=== PATIENT | female | born 1950 | race Caucasian/White ===

== ENCOUNTER 2025-07-23 06:22 | Emergency (ER) | payer OTHER, MEDICARE, SELFPAY ==
--- NOTE | 2025-07-23 | ECG_ITS ---
Test Reason : dizziness Blood Pressure : */* mmHG Vent. Rate : 58 BPM Atrial Rate : 58 BPM P-R Int : 184 ms QRS Dur : 86 ms QT Int : 470 ms P-R-T Axes : 42 -2 31 degrees QTcB Int : 461 ms Sinus bradycardia Minimal voltage criteria for LVH, may be normal variant ( R in aVL ) Borderline ECG No previous ECGs available Referred By: Generic ED Physician Electronically Signed By: CARMEN BRUCE
--- NOTE | ~2025-07-23 | CT_ITS ---
EXAMINATION: CT ABDOMEN AND PELVIS WITH CONTRAST CLINICAL INFORMATION: Left lower quadrant and right flank pain. History of renal stones. COMPARISON: None available. TECHNIQUE: Multidetector volumetric images were obtained from the superior aspect of the liver through the pubic symphysis following administration 85 mL of Omnipaque 350 intravenous contrast. Sagittal and coronal reformatted images were obtained on the technologist's workstation. Oral contrast: No This CT examination was performed using dose optimization techniques as appropriate, variously including the following: *Automated exposure control *Adjustment of mA and/or kV according to patient size (this includes techniques or standardized protocols for targeted exams where dose is matched to indication/reason for exam; i.e. extremities or head) *Use of iterative reconstruction technique FINDINGS: LUNG BASES: Lung bases are clear bilaterally. There is minimal dependent atelectasis. There is mild cardiac enlargement. There is dense calcification of the mitral annulus. There is mild calcification of the aortic annulus. There are moderate coronary calcifications. There is no pericardial effusion. LIVER, GALLBLADDER, AND BILIARY TREE: The liver is normal in size, shape, and attenuation. No focal hepatic lesion or biliary ductal dilatation is present. The gallbladder is unremarkable with no evidence of radiopaque gallstones, gallbladder wall thickening, or obvious pericholecystic inflammatory changes. There is a phrygian cap. PANCREAS: Mild to moderate atrophy with scattered parenchymal calcifications. Otherwise normal. SPLEEN: Unremarkable. ADRENAL GLANDS: Unremarkable. KIDNEYS AND URETERS: Right kidney: Moderate hydronephrosis and perirenal stranding. Moderate hydroureter to the level of the ureterovesical junction, where there is a 5 mm obstructing calculus. No additional right renal calculi seen. No right renal masses. Left kidney demonstrates several small cysts, the largest in the lower pole measuring 1.6 cm. No hydronephrosis, calculus, or mass. The left ureter is normal. BLADDER: Decompressed but otherwise normal. GASTROINTESTINAL TRACT: There is mild to moderate sigmoid diverticulosis. There is no evidence of wall thickening or inflammation. Remainder of the colon is normal in course and caliber. Normal appendix. Small bowel is normal. Stomach, and duodenal sweep appear normal. No rectal abnormality. ABDOMINAL WALL: No significant hernia is appreciated. LYMPH NODES: No abnormal lymphadenopathy is present. VASCULAR: Moderate to heavy calcific atheromatous disease of the aorta and iliac arteries. No aneurysm. PELVIC VISCERA: There has been a hysterectomy. The ovaries are normal. OSSEOUS STRUCTURES: No lytic or blastic bone lesion evident. Moderate spinal degenerative changes. Mild to moderate bilateral hip joint degenerative changes. CT/CT abdomen pelvis w IV con IMPRESSION: 1. Moderate RIGHT hydronephrosis and hydroureter secondary to an obstructing 5 mm calculus at the UVJ. 2. No additional urological calculi identified. 3. Ancillary findings as discussed in the body of the report. Electronically signed by: Nilesh Hillman MD 07/23/2025 11:05 AM EDT RP
[2025-07-23 06:24] VITALS: BP 166/72; PULSE 62; RESP 15; TEMP 36.7; O2SAT 100; BMI 41.3
[2025-07-23 06:46] LABS: MANUAL DIFF FLAG NO
[2025-07-23 07:04] LABS: Alanine Aminotransferase 13 U/L (0-31); Albumin Level 4.0 g/dL (3.5-5.0); Alkaline Phosphatase 132 U/L (39-117); Anion Gap 14 (12-20); Aspartate Amino Transferase 19 U/L (5-31); Blood Urea Nitrogen 22 mg/dL (9-16); Calcium 9.4 mg/dL (8.4-10.2); Carbon Dioxide 26 mmol/L (22-29); Chloride 106 mmol/L (96-108); Creatinine Clr Calc Pharmacy 55.4; Estimated Glomerular Filt Rate 49; Lipase 17 U/L (8-78); Potassium 4.0 mmol/L (3.3-5.1); Sodium 142 mmol/L (135-145); Total Protein 6.4 g/dL (6.5-8.0)
[2025-07-23 07:06] LABS: Hematocrit 44.2 % (37.0-47.0); Hemoglobin 14.6 g/dl (12.0-16.0); Imm Gran Abs Auto 0.03 X10*3/uL (0.00-0.03); Imm Gran Pct Auto 0.3 % (0.0-0.4); Lymphocytes Absolute Auto 1.2 X10*3/uL (1.2-4.9); Mean Corpuscular HGB Conc 33.0 g/dl (31.0-35.0); Mean Corpuscular Hemoglobin 30.7 pg (27.0-33.0); Mean Corpuscular Volume 92.9 fL (80.0-98.0); NRBC Abs Auto 0.000 X10*3/uL (0.0-0.012); NRBC Pct Auto 0.0 /100WBC (0.0-0.2); Platelet Count 218 X10*3/uL (160-400); Red Blood Count 4.76 X10*6/uL (4.20-5.50); White Blood Count 9.1 X10*3/uL (4.8-10.8)
--- OUTSIDE RECORDS SUMMARY | 2025-07-23 08:39 | XMS_ITS | Clinical Summary ---
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 Name Role Phone Unavailable Primary Care Provider Unavailabl e Surgical History Surgery Date Site/Laterality Comments HYSTERECTOMY PROCEDURE: HISTORICAL HYSTERECTOMY FOOT SURGERY Right PROCEDURE: HISTORICAL FOOT SURGERY; COMMENT: metatarsal fracture KNEE SURGERY PROCEDURE: HISTORICAL KNEE SURGERY Medical History Medical History Date Comments Adnexal cyst 12/04/2014 DX:Adnexal cyst Anxiety 02/28/2013 DX:Anxiety Colon polyp 12/26/2016 DX:Colon polyp Diverticulosis 12/26/2016 DX:Diverticulosi s Hyperlipidemia 03/21/2018 DX:Hyperlipidemi a Hypertension 05/14/2018 DX:Hypertension Internal hemorrhoids 12/26/2016 DX:Internal hemorrhoids Osteoporosis 09/26/2017 DX:Osteoporosis Vitamin D deficiency 09/08/2015 DX:Vitamin D deficiency Social History Tobacco Use Types Packs/Day Years Used Date Smoking Tobacco: Former Cigarettes Q uit: 08/02/2019 Smokeless Tobacco: Never Alcohol Use Standard Drinks/Week Comments Yes 0 (1 standard drink = 0.6 oz pur e alcohol) Comments Unknown Sex and Gender Information Value Date Recorded Sex Assigned at Not on file Legal Sex Female 1:27 PM EST Gender Identity Not on file Sexual Orientation Not on file Obstetrics History Plan of Treatment Health Maintenance Due Date Last Done Comments Breast Cancer Screening 1950 DTaP,Tdap,and Td Vaccines (1 - Tdap) 1971 Zoster Vaccines (1 of 2) 2002 Pneumococcal Vaccine: 50+ Years (3 of 3 - PCV20 or PCV21) 09/26/2022 09/26/2017, 01/01/2016 COVID-19 Vaccine ( - 2023-2 5 season) 2024 Cholesterol Screening (Lipid Panel) 09/20/2024 Falls Risk Assessment 09/20/2024 Hepatitis C Screening 09/20/2024 Hypertension/CHF/CAD Annual BMP Blood Test 09/20/2024 Osteoporosis Screening (Bone Density Screening) 09/20/2024 Social Influencers of Health Screening 09/20/2024 Depression Screening 11/27/2024 Influenza Vaccine (#1) 2025 Colorectal Cancer Screening: Colonoscopy 12/22/2026 RSV Immunization Adult Patients (1 - 1-dose 75+ series) 2027 HIB Vaccines Aged Out No longer eligi ble based on patient's age to complete this topic HPV Vaccines Aged Out No longer eligi ble based on patient's age to complete this topic Hepatitis A Vaccines Aged Out No long er eligible based on patient's age to complete this topic Hepatitis B Vaccines Aged Out No long er eligible based on patient's age to complete this topic IPV Vaccines Aged Out No longer eligi ble based on patient's age to complete this topic MMR Vaccines Aged Out No longer eligi ble based on patient's age to complete this topic Meningococcal ACWY Vaccine Aged Out N o longer eligible based on patient's age to complete this topic Meningococcal B Vaccine Aged Out No l onger eligible based on patient's age to complete this topic RSV Immunization Patients Under 20 months Aged Out No longer eligible b ased on patient's age to complete this topic Varicella Vaccines Aged Out No longer eligible based on patient's age to complete this topic
--- NOTE | 2025-07-23 08:53 | PC.NURSE ---
pt awake and alert, skin warm and dry, respirations even and unlabored without distress noted. The pt reports 10/10 right lower quadrant pain that radiates around to her back with associated nausea and urinary symptoms. The pt was up to the restroom independently shortly after arrival to bedside and was given a urine cup for a sample but was unable to produce a sample. Upon returning to the bed, she reported feeling faint and dizzy. EKG order entered
[2025-07-23 08:59] VITALS: BP 178/97; PULSE 43; RESP 10; TEMP 36.6; O2SAT 95
--- NOTE | 2025-07-23 09:31 | ED_ITS ---
HPI - Female Genitourinary General Chief complaint: Urogenital-Female Stated complaint: kidney stones Time Seen by Provider: 07/23/25 09:31 Source: patient Mode of arrival: ambulatory Limitations: no limitations History of Present Illness ED Provider: HPI Narrative: 75-year-old woman with a history of renal stones presenting with right flank pain lower quadrant abdominal pain reports dysuria difficult urination, no fevers or chills did have nausea. No vaginal bleeding or discharge. Related Data Previous Rx's ?Medication ?Instructions ?Recorded acetaminophen 500 mg capsule 1,000 mg (2 x 500 mg) PO Q6H PRN 07/23/25 pain 5 days #20 caps ondansetron 4 mg disintegrating 4 mg PO Q8H PRN nausea and 07/23/25 tablet vomiting #4 tabs oxycodone 5 mg tablet 5 mg PO Q6H PRN pain #10 tab s 07/23/25 tamsulosin 0.4 mg capsule (Flomax) 0.4 mg PO BEDTIME 5 days #5 caps 07/23/25 Allergies Allergy/AdvReac Type Severity Reaction Status Date / Time Penicillins Allergy Rash Verified 07/23/25 06:28 sulfamethoxazole (From Allergy Rash Verified 07/23/25 06:28 Bactrim) trimethoprim (From Bactrim) Allergy Rash Verified 07/23/25 06:28 Review of Systems 2 Constitutional: Constitutional: Reports as per [facility] Social History Social History Smoked in Last 30 Days: No Use of substances other than those prescribed or required for medical reasons: No Advance Directives: No Advance Directives Information Provided: Yes Do you have a plan to hurt others: No Plan Patient : No Physical Exam 2 Vital Signs: Vital Signs: Last Vital Signs Temp 97.9 F 07/23/25 08:59 Pulse 43 L 07/23/25 08:59 Resp 14 07/23/25 10:08 BP 178/97 H 07/23/25 08:59 Pulse Ox 95 07/23/25 08:59 O2 Del Method Room Air 07/23/25 08:59 BMI result Body Mass Index 41.3 Const: Other: * Gen: ?Overall well-appearing patient * CV: RRR, no obvious murmurs appreciated * Resp: ?No wheezing rales rhonchi no stridor moving air well * Abd: ?Bowel sounds are present, no tenderness no rebound no rigidity, no CVA tenderness * MSK: FROM, strength 5/5 all extremities * Skin: Warm, dry, intact, no rashes * Neuro: ?Alert and oriented x3, moving upper and lower extremities symmetrically, no obvious facial asymmetry noted Medications Administered Discontinued Medications Generic Name Dose Route Start Last Admin Trade Name Kiera PRN Reason Stop Dose Admin Iohexol 100 ml 07/23/25 10:22 07/23/25 10:43 Iohexol 350 Mg/Ml 100 Ml Infus..Btl IV 07/23/25 10:23 85 ml ONCE ONE Administration Ketorolac Tromethamine 15 mg 07/23/25 09:57 07/23/25 10:08 Ketorolac Tromethamine 15 Mg/Ml Vial IVPUSH 07/23/25 09:58 15 mg ONCE ONE Administration Morphine Sulfate 4 mg 07/23/25 09:57 07/23/25 10:08 Morphine Sulfate 4 Mg/Ml Cartridge IVPUSH 07/23/25 09:58 4 mg ONCE ONE Administration Protocol Ondansetron HCl 4 mg 07/23/25 09:57 07/23/25 10:08 Ondansetron Hcl 4 Mg/2 Ml Vial IVPUSH 07/23/25 09:58 4 mg ONCE ONE Administration Medical Decision Making Medical Decision Making MDM Narrative: Consideration for workup as below, we will order IV medications for pain antiemetics as well obtain imaging, disposition to be determined 1158: Differential Diagnosis Differential Diagnoses: The differential diagnosis associated with the presentation includes (Renal colic, diverticulitis, appendicitis, SBO, bowel perforation, AAA, pyelonephritis) Admission/Observation Consideration of admission/observation: Escalation of care including admission/observation considered 2022 Emergency Medicine Coding Guide from [email or web address] on 07/23/2025 All calculations should be rechecked by clinician prior to use RESULT SUMMARY: 5 Estimated Level of Service Problems: High (5) Risk: High (5) Data: Extensive (5) NARRATIVE MDM: This patient's problem complexity is High as patient: may have an acute or chronic illness/injury posing a threat to life or body function. This patient's risk is High due to: overall presentation requiring evaluation for a potentially High-risk process. This patient's data complexity is Extensive due to: -multiple tests ordered -independent interpretation of imaging or EKG INPUTS: Number and Complexity ?> 2 = 5: illness/injury w/life or body threat (b) Risk level ?> 4 = High Tests ordered ?> 2 = 2 Tests results reviewed (excluding labs) ?> 1 = 1 Prior external notes reviewed ?> 0 = 0 Assessment requiring and independent historian ?> 0 = No Independent interpretation of tests ?> 1 = Yes Discussed management/test interpretation w/external professional ?> 0 = No Lab Data MDM Lab Attestation statement: I reviewed the patient's lab results. 07/23/25 06:40 07/23/25 06:40 Labs: Lab Results 07/23/25 07/23/25 Range/Units 06:40 09:49 WBC 9.1 (4.8-10.8) X10*3/uL RBC 4.76 (4.20-5.50) X10*6/uL Hgb 14.6 (12.0-16.0) g/dl Hct 44.2 (37.0-47.0) % MCV 92.9 (80.0-98.0) fL MCH 30.7 (27.0-33.0) pg MCHC 33.0 (31.0-35.0) g/dl RDW 13.2 (11.0-16.0) % Plt Count 218 (160-400) X10*3/uL MPV 10.1 (9.4-12.3) fL Immature Gran % (Auto) 0.3 (0.0-0.4) % Neut % (Auto) 80.4 H (45-73) % Lymph % (Auto) 12.6 L (20-40) % [place] % (Auto) 5.0 (2-11) % Eos % (Auto) 1.3 (0-4) % Baso % (Auto) 0.4 (0-2) % Lymph # (Auto) 1.2 (1.2-4.9) X10*3/uL [place] # (Auto) 0.5 (0.1-1.2) X10*3/uL Eos # (Auto) 0.1 (0.0-0.4) X10*3/uL Baso # (Auto) 0.0 (0.0-0.2) X10*3/uL Abs Immat Gran (auto) 0.03 (0.00-0.03) X10*3/uL Absolute Neuts (auto) 7.3 (2.0-8.3) x10*3/uL Absolute Nucleated RBC 0.000 (0.0-0.012) X10*3/uL Nucleated RBC % (auto) 0.0 (0.0-0.2) /100WBC Sodium 142 (135-145) mmol/L Potassium 4.0 (3.3-5.1) mmol/L Chloride 106 (96-108) mmol/L Carbon Dioxide 26 (22-29) mmol/L Anion Gap 14 (12-20) BUN 22 H (9-16) mg/dL Creatinine 1.09 (0.5-1.4) mg/dL Estim Creat Clear Calc 55.4 Estimated GFR 49 Random Glucose 182 H (60-115) mg/dL Calcium 9.4 (8.4-10.2) mg/dL Total Bilirubin 0.8 (0.0-1.0) mg/dL AST 19 (5-31) U/L ALT 13 (0-31) U/L Alkaline Phosphatase 132 H (39-117) U/L Total Protein 6.4 L (6.5-8.0) g/dL Albumin 4.0 (3.5-5.0) g/dL Lipase 17 (8-78) U/L Urine Color Yellow Urine Appearance Clear Urine pH 7.5 (5.0-9.0) Ur Specific [place] 1.015 (1.005-1.025) Urine Protein Trace (Neg-Trace) mg/dL Urine Glucose (UA) 100 H (Negative) mg/dL Urine Ketones Trace (Negative) mg/dL Urine Blood Moderate (2+) H (Negative) Urine Nitrite Negative (Negative) Ur Leukocyte Esterase Small (1+) H (Negative) Urine RBC >20 H (0-2) /HPF Urine WBC 11-20 H (0-5) /HPF Ur Squamous Epith Cells 6-10 (0-2) /HPF Urine Bacteria Trace (None Seen) Hyaline Casts 0-2 (0-2) /LPF Radiology Impression Discussion of test interpretation with radiology: I have reviewed the radiologist's reading. ( CT/CT abdomen pelvis w IV con IMPRESSION: 1. Moderate RIGHT hydronephrosis and hydroureter secondary to an obstructing 5 mm calculus at the UVJ. 2. No additional urological calculi identified. 3. Ancillary findings as discussed in the body of the report.) Prescription Management I considered prescription management with: Pain Medication Critical Care Time Critical Care Time Critical Care Time: Yes Total Critical Care Time: 35 Attestation: Time is exclusive of separately billable procedures. Time includes: direct patient care, patient reassessment, coordination of patient care, interpretation of data (laboratory data, pulse oximetry, arterial blood gases and chest xrays), review of patient's medical records, medical consultation and documentation of patient care. Procedures excluded from critical care time: central intravenous line placement and electrocardiography. Discharge Plan Discharge Clinical Impression: Renal colic on right side Patient Disposition: Home, Self-Care Instructions: Renal Colic (ED) Additional Instructions: You were in the process of passing a 5 mm kidney stone on the right side, it is almost in the bladder, I suspect you going to passive with the next few days, ibuprofen 400 mg every 6 hours around the clock for the next 2 days, Tylenol 975 mg only if pain is not better, and addition of oxycodone if ibuprofen and Tylenol helping, Flomax before bedtime, Zofran as needed for nausea and vomiting, follow up with the PCP or Urology, worsening issues or concerns inability to urinate spiking fevers come back to the ER Prescriptions: New acetaminophen 500 mg capsule 1,000 mg PO Q6H PRN (Reason: pain) 5 Days Qty: 20 0RF oxycodone 5 mg tablet 5 mg PO Q6H PRN (Reason: pain) Qty: 10 0RF Rx Instructions: Partial Fill upon patient request. tamsulosin [Flomax] 0.4 mg capsule 0.4 mg PO BEDTIME 5 Days Qty: 5 0RF ondansetron 4 mg tablet,disintegrating 4 mg PO Q8H PRN (Reason: nausea and vomiting) Qty: 4 0RF Referrals: [facility] [Provider Group, Urology] - 1 week Clinical Impression: Renal colic on right side Print Language: Cuban
[2025-07-23 09:56] LABS: Appearance Urine Clear; Glucose Urine UA 100 mg/dL (Negative); PH 7.5 (5.0-9.0); Specific Gravity - Urine 1.015 (1.005-1.025); UMIC TRIGGER UACC YES
[2025-07-23 09:58] LABS: UACC Culture Trigger YES
[2025-07-23 10:08] VITALS: RESP 14
[2025-07-23] MEDS: iohexoL 350 MG/ML 100 ML INFUS..BTL IV (10:43)
[2025-07-23 12:35] VITALS: BP 146/85; PULSE 72; RESP 14; TEMP 36.8; O2SAT 96
== END 2025-07-23 12:35 | disposition home or self-care (01) ==
PROVIDERS: Emergency Provider Emergency Medicine
DX: N20.0 Calculus of kidney (principal); R42 Dizziness and giddiness; R00.1 Bradycardia, unspecified; R10.32 Left lower quadrant pain; Z87.442 Personal history of urinary calculi
CPT/HCPCS: 36415; 74177; 80053; 81001; 83690; 85025; 87086; 93005; 96374; 96375; 99285; J1885; J2270; J2405; Q9967

== ENCOUNTER → 2025-07-23 07:59 | Outpatient (BNV) | payer OTHER, MEDICARE, SELFPAY | PROVIDERS: Emergency Provider Emergency Medicine; Visit Provider Internal Medicine | DX: R00.1 Bradycardia, unspecified (principal) | CPT/HCPCS: 93010 ==

== ENCOUNTER → 2025-07-23 09:57 | Outpatient (BNV) | payer OTHER, MEDICARE, SELFPAY | PROVIDERS: Emergency Provider Emergency Medicine; Visit Provider Radiology Diagnostic Radiology | DX: N13.2 Hydronephrosis with renal and ureteral calculous obstruction (principal) | CPT/HCPCS: 74177 ==

== ENCOUNTER 2025-09-24 15:07 | Outpatient (AMB) | payer OTHER, MEDICARE, SELFPAY ==
--- NOTE | 2025-09-24 15:12 | A.OFFVIS_ITS ---
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 She presents to the office today as a new patient for nephrolithiasis. In discussion with the patient today she reports having seeked emergency room care approximately 2 months ago for right-sided flank pain she had been experiencing at which a CT of the abdomen and pelvis was ordered for further assessment evaluation. These results were reviewed and communicated with the patient today. 07/21 moderate right hydronephrosis and hydroureter secondary to an obstructing 5 mm calculus at the UVJ. No additional urological calculi identified per radiology report. Patient does report a previous history of nephrolithiasis however never requiring surgical intervention. She reports pain she had been experiencing has since subsided. However, she does not recall passage of debris and or calculi. She currently denies any bothersome urinary issues or concerns. She denies urinary urgency, urinary frequency, incontinence, nocturia, hematuria, dysuria, foul smelling urine, changes to urinary stream, flank pain, fever, and or chills. She is happy with her current voiding parameters. In office urinalysis results reviewed with the patient today. We did discussed potential causes of nephrolithiasis as well as further interventions and risks and benefits of these interventions. All questions were answered. She otherwise offers no other issues or concerns at this time. Review of Systems Const All systems reviewed & are unremarkable except as noted in HPI and below Physical Exam Const General: cooperative, healthy appearing, comfortable, no acute distress, well developed, alert and awake Orientation/consciousness: patient oriented x3 Limitations: no limitations HEENT Head: Yes normal to inspection, Yes normocephalic and Yes atraumatic Ears: hearing grossly normal bilaterally Eyes General: appearance normal, both eyes and all related structures Neck Neck: Yes normal visual inspection and Yes trachea midline Chest Chest palpation & inspection: normal inspection of the chest Resp Effort & Inspection: normal respiratory effort and able to speak in complete sentences Cardio Rate: regular rate GI Inspection: Yes normal to inspection General: Yes no CVA tenderness Back/Spine/Pelvis Back: no CVA tenderness Skin General skin exam: no rashes or lesions noted Neuro General: patient oriented x3 Extrem General: Yes normal to inspection Psych Appearance: grossly normal and well kempt Mental Status: mental status grossly normal Speech and movement: Normal speech and movement present and Clear speech present Affect: normal affect Attitude: cooperative Thought process: Normal thought process present Thought content: Normal thought content present Insight: Fair insight present (Psych) Judgement: Fair judgement present (Psych) Office Procedures Post Void Residual Post Residual Void Post Void Residual (PVR): 0 [id number] Void Residual by ultrasound Results AMB Urinalysis, Automated UA Leukoctes 15 Kellie/uL Last Edit by BEBO Win on 09/24/25 15:28 UA Nitrite Negative Last Edit by BEBO Win on 09/24/25 15:28 UA Urobilinogen 0.2 mg/dL Last Edit by BEBO Win on 09/24/25 15:2 8 UA Protein 30 mg/dL Last Edit by BEBO Win on 09/24/25 15:28 UA pH 6.5 Last Edit by BEBO Win on 09/24/25 15:28 UA Blood 0 Fabricio/uL Last Edit by BEBO Win on 09/24/25 15:28 UA Specific [place] 1.015 Last Edit by BEBO Win on 09/24/25 15: 28 UA Ketone Negative Last Edit by BEBO Win on 09/24/25 15:28 UA Bilirubin 0 mg/dL Last Edit by BEBO Win on 09/24/25 15:28 UA Glucose 0 mg/dL Last Edit by Gaurang Henderson CCM on 09/24/25 15:28 Results Reviewed Results Reviewed: Laboratory Last Values Urine pH (Auto) 6.5 09/24/25 15:15 Specific [place] (Auto) 1.015 09/24/25 15:15 Urine Protein (Auto) 30 mg/dL 09/24/25 15:15 Glucose (UA)(Auto) 0 mg/dL 09/24/25 15:15 Urine Ketones (Auto) Negative 09/24/25 15:15 Urine Blood (Auto) 0 Fabricio/uL 09/24/25 15:15 Urine Nitrite (Auto) Negative 09/24/25 15:15 Urine Bilirubin (Auto) 0 mg/dL 09/24/25 15:15 Urine Urobilinogen (Auto) 0.2 mg/dL 09/24/25 15:15 Leukocyte Esterase (Auto) 15 Kellie/uL 09/24/25 15:15 Date of Service: 07/23/25 Procedure(s): CT abdomen pelvis w IV con FINDINGS: LUNG BASES: Lung bases are clear bilaterally. There is minimal dependent atelectasis. There is mild cardiac enlargement. There is dense calcification of the mitral annulus. There is mild calcification of the aortic annulus. There are moderate coronary calcifications. There is no pericardial effusion. LIVER, GALLBLADDER, AND BILIARY TREE: The liver is normal in size, shape, and attenuation. No focal hepatic lesion or biliary ductal dilatation is present. The gallbladder is unremarkable with no evidence of radiopaque gallstones, gallbladder wall thickening, or obvious pericholecystic inflammatory changes. There is a phrygian cap. PANCREAS: Mild to moderate atrophy with scattered parenchymal calcifications. Otherwise normal. SPLEEN: Unremarkable. ADRENAL GLANDS: Unremarkable. KIDNEYS AND URETERS: Right kidney: Moderate hydronephrosis and perirenal stranding. Moderate hydroureter to the level of the ureterovesical junction, where there is a 5 mm obstructing calculus. No additional right renal calculi seen. No right renal masses. Left kidney demonstrates several small cysts, the largest in the lower pole measuring 1.6 cm. No hydronephrosis, calculus, or mass. The left ureter is normal. BLADDER: Decompressed but otherwise normal. GASTROINTESTINAL TRACT: There is mild to moderate sigmoid diverticulosis. There is no evidence of wall thickening or inflammation. Remainder of the colon is normal in course and caliber. Normal appendix. Small bowel is normal. Stomach, and duodenal sweep appear normal. No rectal abnormality. ABDOMINAL WALL: No significant hernia is appreciated. LYMPH NODES: No abnormal lymphadenopathy is present. VASCULAR: Moderate to heavy calcific atheromatous disease of the aorta and iliac arteries. No aneurysm. PELVIC VISCERA: There has been a hysterectomy. The ovaries are normal. OSSEOUS STRUCTURES: No lytic or blastic bone lesion evident. Moderate spinal degenerative changes. Mild to moderate bilateral hip joint degenerative changes. IMPRESSION: 1. Moderate RIGHT hydronephrosis and hydroureter secondary to an obstructing 5 mm calculus at the UVJ. 2. No additional urological calculi identified. 3. Ancillary findings as discussed in the body of the report. Assessment & Plan Assessment & Plan (1) Ureteric stone: Code(s): N20.1 - Calculus of ureter Category: Medical Plan In office urinalysis results with the patient today; as noted above. PVR [address] results reviewed with the patient today; as noted above. Discussed potential causes of nephrolithiasis as well as further interventions and risks and benefits of these interventions. All questions were answered. She currently denies any bothersome urinary issues or concerns. She reports be happy with her current voiding parameters. We did discussed the importance of adequate hydration relation to nephrolithiasis as well as overall health and well-being. We discussed adding 1 oz of lemon juice to water daily. Will obtain retroperitoneal ultrasound for further assessment evaluation Follow-up in 1-3 months with imaging to be completed prior; or sooner with any i ssues, concerns, and or questions. Orders: Orders AMB Urinalysis Automated Today Z13.9 - Encounter for screening, unspecified Patient Instructions: The patient had an opportunity to ask questions regarding the treatment plan. All questions were answered. Physical exam, labs, and imaging were discussed and reviewed in detail. As well as risks, benefits, and discussion of treatment choices. No major barriers to understanding were identified. The patient expressed understanding and agreement with the above treatment plan. The patient was made aware they should contact our office by phone for worsening of their current condition, the appearance of new symptoms, or with any questions or concerns. Compliance is encouraged with any medications and follow up testing that is ordered. It is a privilege to be allowed the opportunity to participate in? your urological care.? Again, if you have any questions or concerns If you have any questions or concerns please do not hesitate to contact me. The office is [phone]. This note is constructed using voice recognition software. While every effort has been made to ensure accuracy conversion worker errors may have been included. Yours sincerely, KAYY Arias-BC Coding Level of Care Code New Pt Level 3 (56030) Diagnoses Ureteric stone N20.1 CPT Codes Post Residual Void - PVR CPT Code: 78819-Hyue Void Residual by ultrasound ([id number])
--- OUTSIDE RECORDS SUMMARY | 2025-09-24 19:34 | XMS_ITS | Clinical Summary ---
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
== END 2025-09-24 15:45 | disposition home or self-care (01) ==
LOC: HO.HUSH 15:07
PROVIDERS: Visit Provider Nurse Practitioner Family
DX: N20.1 Calculus of ureter (principal); Z13.9 Encounter for screening, unspecified
CPT/HCPCS: 99203

== ENCOUNTER → 2025-09-24 15:07 | Outpatient (BNVA) | payer OTHER, MEDICARE, SELFPAY | PROVIDERS: Visit Provider Nurse Practitioner Family | DX: N20.1 Calculus of ureter (principal) | CPT/HCPCS: 51798; 81003 ==